=== PATIENT | male | born 1985 | race African-American/Black ===

== ENCOUNTER 2017-04-21 14:34 | Emergency (ER) | payer SELFPAY | END 2017-04-21 15:10 | disposition home or self-care (01) | LOC: SCSER 14:34 | DX: Z20.2 Contact with and (suspected) exposure to infections with a predominantly sexual mode of transmission (principal); J45.909 Unspecified asthma, uncomplicated; F32.9 Major depressive disorder, single episode, unspecified; F17.210 Nicotine dependence, cigarettes, uncomplicated | CPT/HCPCS: 99406 ==